=== PATIENT | male | born 1975 | race Caucasian/White ===

== ENCOUNTER 2023-01-28 15:01 | Emergency (ER) | payer BC, SELFPAY ==
[2023-01-28 15:10] VITALS: BP 106/86; PULSE 90; RESP 20; TEMP 36.3; O2SAT 98
--- NOTE | 2023-01-28 15:31 | ED.URI ---
HPI - URI/Sore Throat General Chief Complaint: Upper Respiratory Infection Stated Complaint: positive covid home test today. Work note Time Seen by Provider: 01/28/23 15:17 Source: patient and RN notes reviewed Mode of arrival: ambulatory Limitations: no limitations History of Present Illness HPI Narrative: Patient presents today complaining of 2 day history of chills, sweats, fatigue, subjective fever, cough, headache, body aches. He had a positive home COVID-19 test today. Denies history of asthma or COPD. He has been taking Aleve and NyQuil with some relief. Smokes 2 packs per day. Related Data Allergies Allergy/AdvReac Type Severity Reaction Status Date / Time No Known Allergies Allergy Verified 01/28/23 15:03 Review of Systems Review of Systems: CONSTITUTIONAL: + chills, sweats, fatigue, body aches, subjective fever EYES: Denies visual changes, redness, or discharge. ENT: Denies rhinorrhea, congestion, sore throat, or otalgia. CARDIOVASCULAR: Denies chest pain, palpitations, or edema. RESPIRATORY: Denies dyspnea.+ cough GASTROINTESTINAL: Denies abdominal pain, nausea, vomiting, or diarrhea. GENITOURINARY: Denies dysuria or hematuria. SKIN: Denies rash, itching, or wounds. MUSCULOSKELETAL: Denies back pain, joint pain, or myalgia. NEUROLOGIC: Denies numbness, tingling, or weakness.+ headache PSYCH: Denies depression or anxiety. [facility] Past Medical History Medical History (Updated 01/28/23 @ 15:36 by Billie Boo, [facility], ) Grand mal seizure Social History Social History Smoking packs per day: 2 Smoking cigarettes per day: 40.0 Smoking status: Current every day smoker Alcohol intake: never Substance use: never Substance use type: does not use Lack of Transportation: No Lack of Food: Never True Current Housing: I Have Housing Concerned About Future Housing: No Difficulty Paying Gas/Electric Bills: No Difficulty Paying for Meds: No Currently Unemployed: No Education: High School Diploma/GED Difficulty w/ Childcare or Family Care: No Living arrangements: with family Gender identity (if verbalized by the patient): Male Comments At time of signature, I have reviewed and agree with nursing past medical, surgical, social and family history unless otherwise noted. Please see nursing chart for further information. There is no relevant family history pertinent to the presenting complaint Exam Narrative: GENERAL: Mildly ill-appearing, well-nourished, and in no acute distress. HEAD: Normocephalic, atraumatic. EYES: EOMI. No redness or drainage. Conjunctivae normal. ENT: Mucous membranes pink and moist. Nares congested. No rhinorrhea. TMs normal bilaterally. Throat erythematous and mildly edematous. No exudate. Uvula midline. NECK: Normal AROM. Supple. No lymphadenopathy. CHEST: No respiratory distress. Clear to auscultation. HEART: Regular rate and rhythm. No murmur appreciated. EXTREMITIES: Normal range of motion. No edema. SKIN: Warm, dry, no rash. Capillary refill normal. Normal skin turgor. NEURO: No focal deficits. Alert and oriented x3. Gait steady. PSYCH: Normal affect. No signs of depression or anxiety. Course Course Level of Care: Express Care Visit Vital Signs Vital signs: Vital Signs Temperature 97.3 F L 01/28/23 15:10 Pulse Rate 90 01/28/23 15:10 Respiratory Rate 20 01/28/23 15:10 Blood Pressure 106/86 01/28/23 15:10 Pulse Oximetry 98 01/28/23 15:10 Oxygen Delivery Room Air 01/28/23 15:10 Temperature 97.3 F L 01/28/23 15:10 Pulse Rate 90 01/28/23 15:10 Respiratory Rate 20 01/28/23 15:10 Blood Pressure 106/86 01/28/23 15:10 Pulse Oximetry 98 01/28/23 15:10 Oxygen Delivery Room Air 01/28/23 15:10 Reviewed MDM - URI/Sore Throat MDM Narrative Medical decision making narrative: COVID-19 positive at home. No indication for fu
== END 2023-01-28 15:38 | disposition home or self-care (01) ==
PROVIDERS: Emergency Provider Nurse Practitioner
DX: U07.1 COVID-19 (principal); F17.210 Nicotine dependence, cigarettes, uncomplicated
CPT/HCPCS: 99211; G0463

== ENCOUNTER 2024-09-23 00:26 | Day surgery (SDC) | payer BC, SELFPAY ==
[2024-09-05 12:51] VITALS: BMI 25.7
[2024-09-23 06:58] VITALS: BP 114/86; PULSE 73; RESP 16; TEMP 36.2; O2SAT 99; BMI 25.7
[2024-09-23] MEDS: LACTATED RINGERS 1,000 ML 150 ML IV CONT (07:14)
--- NOTE | 2024-09-23 07:29 | WPDANESEPPF ---
Anes - Initial Pre Proc Eval Procedure: Operation Date: 09/23/24 08:30 Proposed Procedures p Screening Colonoscopy - Kayode Pierson MD Date/Time: 09/23/24 07:29 Surgeon: Kayode Pierson MD Pre Op Diagnosis: malignant neoplasm of colon Patient Data Age: 49 Gender: M Height: 1.65 m Weight: 70.1 kg Last Vital Signs Temp 36.2 C L 09/23/24 06:58 Pulse 73 09/23/24 06:58 Resp 16 09/23/24 06:58 BP 114/86 09/23/24 06:58 Pulse Ox 99 09/23/24 06:58 O2 Del Method Room Air 09/23/24 06:58 Allergies Allergy/AdvReac Type Severity Reaction Status Date / Time No Known Allergies Allergy Verified 09/23/24 07:01 Home Medications ?Medication ?Instructions ?Recorded ?Confirmed ?Type levetiracetam 500 mg tablet See Rx Instructions .Route 07/20/22 09/23/24 Rx .COMPLEX #180 tabs phenytoin sodium extended 100 mg See Rx Instructions .Route 08/17/22 09/23/24 Rx capsule .COMPLEX #360 caps lamotrigine 100 mg tablet See Rx Instructions .Route 10/24/22 09/23/24 Rx .COMPLEX #90 tabs Patient hx anesthesia problems: none Family hx anesthesia problems: none Results Review: All pre-operative results and documents have been reviewed as part of the pre-operative evaluation. [facility] Past Medical History Medical History (Updated 01/28/23 @ 15:36 by Billie Boo, [facility], ) Grand mal seizure Social History Social History Smoking packs per day: 2 Smoking cigarettes per day: 40.0 Years smoked: 35 Smoking pack-years: 70.00 Smoking status: Former smoker Tobacco type: e-cigarettes/vaping Alcohol intake: never Substance use: never Substance use type: does not use Lack of Transportation: No Lack of Food: Never True Current Housing: I Have Housing Concerned About Future Housing: No Difficulty Paying Gas/Electric Bills: No Difficulty Paying for Meds: No Currently Unemployed: No Education: High School Diploma/GED Difficulty w/ Childcare or Family Care: No Living arrangements: with friend(s) Gender identity (if verbalized by the patient): Male Anes - Eval Final PreProcedure Day of Procedure 09/23/24 07:29 Patient weight: overweight Heart: regular rate and rhythm Lungs: clear to auscultation Airway: Mallampati scale class II Neurological: alert and oriented Last oral intake: >/= 8 hours ASA classification: III Emergent: no Anesthetic plan: proceed Anesthesia type and monitoring: general GIVS and standard monitoring Results Review: All pre-operative results and documents have been reviewed as part of the pre-operative evaluation. Informed Consent: The patient's anesthetic plan and its attendant risks and benefits were discussed with the patient/family/POA. Questions were solicited and answers provided to the satisfaction of the patient/family/POA.
--- NOTE | 2024-09-23 08:29 | P.HP_ITS ---
H&P: HPI History of Present Illness Date/Time: 09/23/24 08:29 Chief Complaint: Screening colonoscopy Narrative: This is the patient's first colonoscopy. There are no GI symptoms and there is no family history of colorectal cancer. Review of Systems Review of Systems: All systems reviewed & are unremarkable except as noted in HPI and below PMFSH Past Medical History Medical History (Updated 09/23/24 @ 08:30 by Kayode Pierson MD) Grand mal seizure Social History Social History Smoking packs per day: 2 Smoking cigarettes per day: 40.0 Years smoked: 35 Smoking pack-years: 70.00 Smoking status: Former smoker Tobacco type: e-cigarettes/vaping Alcohol intake: never Substance use: never Substance use type: does not use Lack of Transportation: No Lack of Food: Never True Current Housing: I Have Housing Concerned About Future Housing: No Difficulty Paying Gas/Electric Bills: No Difficulty Paying for Meds: No Currently Unemployed: No Education: High School Diploma/GED Difficulty w/ Childcare or Family Care: No Living arrangements: with friend(s) Gender identity (if verbalized by the patient): Male Meds Home Medications and Allergies Home Medications ?Medication ?Instructions ?Recorded ?Confirmed ?Type levetiracetam 500 mg tablet See Rx Instructions .Route 07/20/22 09/23/24 Rx .COMPLEX #180 tabs phenytoin sodium extended 100 mg See Rx Instructions .Route 08/17/22 09/23/24 Rx capsule .COMPLEX #360 caps lamotrigine 100 mg tablet See Rx Instructions .Route 10/24/22 09/23/24 Rx .COMPLEX #90 tabs Allergies Allergy/AdvReac Type Severity Reaction Status Date / Time No Known Allergies Allergy Verified 09/23/24 07:01 Vital Signs Vital Signs - 24 hr 09/23/24 06:58 Temperature 97.1 F L Pulse Rate 73 Respiratory Rate 16 Blood Pressure 114/86 Pulse Oximetry 99 Oxygen Delivery Room Air Exam Const: General: cooperative and healthy appearing Resp: Effort & Inspection: normal respiratory effort and able to speak in complete sentences Auscultation: clear to auscultation bilaterally Cardio: Rate: regular rate Rhythm: regular rhythm GI: Inspection: normal to inspection GI Palp: No No hepatosplenomegaly present Auscultation: normal bowel sounds Rectal Exam: deferred Skin: General skin exam: normal color Psych: Appearance: grossly normal Mental Status: mental status grossly normal Assessment and Plan Assessment and plan (1) Encounter for screening colonoscopy: Code(s): Z12.11 - Encounter for screening for malignant neoplasm of colon Status: Acute Assessment and Plan: The patient is deemed a good candidate for the procedure. Consent signed. Will proceed.
[2024-09-23 08:56] VITALS: BP 100/69; PULSE 73; RESP 16; O2SAT 98
[2024-09-23 09:06] VITALS: BP 104/69; PULSE 73; RESP 16; O2SAT 98
[2024-09-23 09:16] VITALS: BP 115/82; PULSE 70; RESP 15; O2SAT 100
== END 2024-09-23 09:29 | disposition home or self-care (01) ==
PROVIDERS: PCP Internal Medicine; Visit Provider Internal Medicine Gastroenterology
PROC: 0DJD8ZZ Inspection of Lower Intestinal Tract, Via Natural or Artificial Opening Endoscopic (ICD-10-PCS; CPT 45378; principal; 2024-09-23 08:30)
DX: Z12.11 Encounter for screening for malignant neoplasm of colon (principal); K57.30 Diverticulosis of large intestine without perforation or abscess without bleeding; Z87.891 Personal history of nicotine dependence
CPT/HCPCS: 45378; J2003; J2704; J7120

== ENCOUNTER 2024-10-07 09:11 | Emergency (ER) | payer BC, SELFPAY ==
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
[2024-10-07 09:23] VITALS: BP 117/80; PULSE 72; RESP 14; TEMP 36.8; O2SAT 98
== END 2024-10-07 09:40 | disposition home or self-care (01) ==
PROVIDERS: Emergency Provider Nurse Practitioner; PCP Internal Medicine
DX: S09.21XA Traumatic rupture of right ear drum, initial encounter (principal); W39.XXXA Discharge of firework, initial encounter
CPT/HCPCS: 99213; G0463